=== PATIENT | female | born 1965 ===

== ENCOUNTER 2018-08-25 00:31 | Outpatient (CLI) | payer OTHER, SELFPAY ==
--- NOTE | 2018-08-25 13:20 | DI.MAMMO_ITS ---
SYMPTOMS/DIAGNOSIS: SCREENING, Z12.31 MAMMOGRAM: Mammograms were interpreted according to the usual protocol including computer analysis with CAD system, tomosynthesis and C view imaging. The breast tissue is radiodense which lowers the sensitivity of the study. There is no dominant mass. There are no suspicious calcifications and there has been no significant interval change when compared with prior images. SUMMARY: No evidence of malignancy, Category I, yearly screening mammography is recommended. Breast density Category C. MQSA ASSESSMENT OF FINDINGS: Negative. Category 1. Patient will receive a letter notifying them of these results. Bi-RADS category C. The breasts are heterogeneously dense, which may obscure small masses.
== END 2018-08-25 00:51 ==
PROVIDERS: PCP Family Medicine; Visit Provider Obstetrics & Gynecology Gynecology
DX: Z12.31 Encounter for screening mammogram for malignant neoplasm of breast (principal)
CPT/HCPCS: 77063; 77067

== ENCOUNTER 2018-11-16 10:16 | Outpatient (CLI) | payer OTHER, SELFPAY ==
--- NOTE | 2018-11-16 09:11 | DI.RAD_ITS ---
SYMPTOMS/DIAGNOSIS: ANKLE PAIN LEFT ANKLE: There is an osteochondral defect of the medial talar dome, which is likely old. No joint space loose body is seen. There is mild tibiotalar joint space narrowing and mild spurring at the malleoli. There is also some spurring at the distal tibiofibular joint and posterior talocalcaneal joint. There is a small plantar calcaneal spur. 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 LEFT FOOT: There is a tiny plantar calcaneal spur. There is mild to moderate narrowing of the 1st MTP joint and periarticular spurring. No hallux valgus or bony erosions are seen. An osteochondral defect is noted of the medial talar dome seen on the oblique view. There are no significant intertarsal or tarsometatarsal degenerative changes. IMPRESSION: Mild to moderate degenerative changes of the 1st MTP joint.
== END 2018-11-16 10:36 ==
PROVIDERS: PCP Family Medicine; Visit Provider Student in an Organized Health Care Education/Training Program
DX: M25.572 Pain in left ankle and joints of left foot (principal); M79.672 Pain in left foot; M95.8 Other specified acquired deformities of musculoskeletal system; M19.072 Primary osteoarthritis, left ankle and foot; M77.32 Calcaneal spur, left foot
CPT/HCPCS: 73610; 73630

== ENCOUNTER 2019-08-16 16:40 | Outpatient (REF) | payer OTHER, SELFPAY ==
[2019-08-17 11:56] LABS: HCT 42.3 % (36.0-46.0); HGB 14.2 g/dL (12.0-15.5); Mean Corp. HGB Concentration 33.6 g/dL (32.0-36.0); Mean Corpuscular Hemoglobin 30.4 pg (27.0-33.0); Mean Corpuscular Volume 90.6 fL (80-95); Mean Platelet Volume 11.9 fL (8.0-11.0); Platelet Count 255 x1000/uL (130-400); RBC 4.67 m/cumm (4.00-5.20); RBC Distribution Width 12.3 % (11.7-14.6); White Blood Cell Count 6.24 k/cumm (4.4-10.8)
[2019-08-17 12:15] LABS: TSH (W/Ref FT4) 1.16 uIU/mL (0.36-3.74)
[2019-08-18 12:50] LABS: HIV-1/2 Ag & Ab Screen Negative (Negative); Hepatitis C Ab w Rflx HCV PCR Negative (Negative)
== END 2019-08-16 17:00 ==
LOC: LBN 16:40
PROVIDERS: PCP Family Medicine; Visit Provider Nurse Practitioner Women's Health
DX: R53.83 Other fatigue (principal); Z11.4 Encounter for screening for human immunodeficiency virus [HIV]; Z11.59 Encounter for screening for other viral diseases; Z11.3 Encounter for screening for infections with a predominantly sexual mode of transmission
CPT/HCPCS: 85027; 86803; 87389; 84443

== ENCOUNTER 2020-08-14 15:16 | Outpatient (REF) | payer OTHER, SELFPAY ==
[2020-08-14 16:17] LABS: Anion Gap 8.3 mmol/L (3-11); BUN 14 mg/dL (7-18); CO2 30.7 mmol/L (21.0-32.0); CREATININE 0.7 mg/dL (0.55-1.02); Calcium 9.2 mg/dL (8.5-10.1); Calculated LDL 133 mg/dL (<100); Chloride 106 mmol/L (98-107); Cholesterol 235 mg/dL (<200); Glucose 93 mg/dL (74-106); HDL Cholesterol 74 mg/dL (40-60); Potassium 4.2 mmol/L (3.5-5.1); Sodium 145 mmol/L (136-145); Triglyceride 143 mg/dL (<150)
[2020-08-15 05:01] LABS: Vitamin D 25 Total 23.6 ng/mL (30-100)
== END 2020-08-14 15:17 | disposition home or self-care (01) ==
LOC: NCHCN 15:16
PROVIDERS: PCP Family Medicine; Visit Provider Family Medicine
DX: E55.9 Vitamin D deficiency, unspecified (principal); R25.2 Cramp and spasm; Z00.00 Encounter for general adult medical examination without abnormal findings; Z13.220 Encounter for screening for lipoid disorders
CPT/HCPCS: 80048; 80061; 82306; 83735

== ENCOUNTER 2020-08-28 00:53 | Outpatient (CLI) | payer OTHER, SELFPAY ==
--- NOTE | 2020-08-28 | DI.MAMMO_ITS ---
Exam(s) MAMMO SCREENING EXAM: MAMMO SCREENING CLINICAL HISTORY: SCREENING, Z12.31. TECHNIQUE: Bilateral full field digital CC and MLO mammographic images were obtained with 3D tomosyn thesis and utilizing computer aided detection (CAD). COMPARISON: Prior mammograms dating back to 2015, the most recent being August 2018. FINDINGS: There are no new spiculated masses nor malignant appearing microcalcification groups. Benign microcalcifications are again noted in both breast. There is no significant architectural distortion nor skin thickening-retraction. IMPRESSION: No radiographic evidence of malignancy. BI-RADS Category 1 - Negative Breast Density - Category B - Scattered areas of fibroglandular density Breast density Category C or D implies that the patient has dense breast tissue. Dense breast tissue can make it harder to find cancer on a mammogram. Dense breast tissue is also associated with an incr eased risk of breast cancer. This information about the result of the mammogram report was provided to the patient to raise their awareness. Use this report when you speak with the patient about their risks for breast cancer, which includes their family history. At that time, you may recommend additional screening tests (Ultrasoun d or MRI) as these tests may add significant information. A negative radiographic report should not delay biopsy if a dominant or clinically suspicious mass is present. Up to ten percent of cancers are not identified on mammography. A negative report may reinforce clinical impression. Adenosis and dense breasts may obscure an underlying neoplasm. False positive reports average 6 to 10%. Patient will receive a letter notifying them of these results.
== END 2020-08-28 01:13 ==
PROVIDERS: PCP Family Medicine; Visit Provider Family Medicine
DX: Z12.31 Encounter for screening mammogram for malignant neoplasm of breast (principal); R92.8 Other abnormal and inconclusive findings on diagnostic imaging of breast
CPT/HCPCS: 77063; 77067

== ENCOUNTER 2020-11-08 14:33 | Outpatient (REF) | payer OTHER, SELFPAY ==
[2020-11-08 18:34] LABS: ESR 4 mm/hr (0-30)
[2020-11-08 18:48] LABS: C-Reactive Protein 0.13 mg/dL (0.0-0.3)
[2020-11-11 09:21] LABS: Cyclic Citrullinated Peptide <2.5 U/mL (<5.0)
== END 2020-11-08 14:34 | disposition home or self-care (01) ==
LOC: NCHCN 14:33
PROVIDERS: PCP Family Medicine; Visit Provider Family Medicine
DX: M25.462 Effusion, left knee (principal); R21 Rash and other nonspecific skin eruption
CPT/HCPCS: 85652; 86200; 86140

== ENCOUNTER 2020-11-08 15:54 | Outpatient (CLI) | payer OTHER, SELFPAY ==
--- NOTE | 2020-11-08 | DI.RAD_ITS ---
Exam(s) XR KNEE LT 3V AP,LAT,LAURA EXAM: XR KNEE LT 3V AP,LAT,LAURA CLINICAL HISTORY: LT KNEE JOINT EFFUSION M25.462, STANDING PLEASE TECHNIQUE: COMPARISON: No exams were available for comparison FINDINGS: Three views were obtained. There is an ACL reconstruction with a suture anchor adjacent to the dista l lateral femoral metaphysis. Cartilaginous joint spaces appear fairly well maintained. There may b e a small knee joint effusion seen on the lateral view. Minimal marginal osteophyte formation noted particularly at the patellofemoral joint. IMPRESSION: Mild DJD, prior ACL reconstruction noted. RADIATION DOSE DELIVERED: Total DLP
== END 2020-11-08 16:14 ==
PROVIDERS: PCP Family Medicine; Visit Provider Family Medicine
DX: M25.462 Effusion, left knee (principal); M17.12 Unilateral primary osteoarthritis, left knee
CPT/HCPCS: 73562

== ENCOUNTER 2020-11-27 11:20 | Outpatient (CLI) | payer OTHER, SELFPAY ==
--- NOTE | 2020-11-27 | DI.MRI_ITS ---
Exam(s) MR LOWER JOINT LT WO EXAM: MR LOWER JOINT LT WO CLINICAL HISTORY: LT KNEE JT EFFUSION, M25.462, LT KNEE PAIN SWELLING. TECHNIQUE: Multiplanar multisequence MRI was performed. COMPARISON: CR XR KNEE LT 1V from 11/27/2020 CR XR KNEE LT 1V from 11/27/2020 FINDINGS: BONES: There is no fracture or contusion pattern. Mild subchondral edema in the medial tibial plateau . JOINTS: Articular cartilage is unremarkable. There is a small to moderate joint effusion. There is a thickened lateral plica. TENDONS: Extensor mechanism: Unremarkable. Medial retinaculum: Unremarkable. Lateral retinaculum: Unremarkable. Popliteus: Unremarkable. MUSCLES: Mild edema in the gastrocnemius muscles. MENISCI: The medial meniscus is unremarkable. The lateral meniscus is unremarkable. SOFT TISSUES: There is edema seen in the soft tissues around the knee. There does appear to be a sma ll popliteal cyst. LIGAMENTS: Anterior Cruciate: There is an intact ACL repair. Posterior Cruciate: Unremarkable. Medial Collateral:There is a sprain of the MCL. Lateral Collateral: Unremarkable. OTHER: IMPRESSION: 1. Intact ACL graft. 2. No evidence of a meniscal tear. 3. MCL sprain. 4. Joint effusion. DATA REPOSITORY:
--- NOTE | 2020-11-27 16:52 | DI.VRAD_ITS ---
PROCEDURE INFORMATION: Exam: MR Left Lower Extremity Joint Without Contrast, Knee Exam date and time: 11/27/2020 4:18 PM Age: 55 years old Clinical indication: Pain; Knee; Left; Prior surgery; Surgery date: 6+ months; Surgery type: Acl recon 2005 TECHNIQUE: Imaging protocol: MR of the Left lower extremity joint without contrast. Exam focused on the knee. COMPARISON: CR XR KNEE LT 1V 11/27/2020 3:19 PM FINDINGS: Bones and cartilage: Focal reactive subchondral edema posterior aspect of the medial tibial plateau. Joint spaces: Moderate joint effusion. Mild synovitis. Medial meniscus: Unremarkable. No tear. Lateral meniscus: Unremarkable. No tear. Anterior cruciate ligament: Postoperative changes of ACL reconstruction. The graft appears intact and in good position. Posterior cruciate ligament: Unremarkable. No tear. Medial capsule and supporting structures: Distal semimembranosus enthesopathy. Edema along the deep and superficial fibers of the medial collateral ligament with mild thickening of the MCL, consistent with low-grade MCL tearing. Lateral capsule and supporting structures: Unremarkable. No tear. Extensor mechanism of knee: Unremarkable. No tear. Muscles: Muscular edema in the gastrocnemius muscles and in the muscles of the anterior compartment of the leg. Soft tissues: Diffuse subcutaneous edema. Edema in the popliteal fossa. IMPRESSION: 1. ACL graft appears intact and in good position 2. Moderate joint effusion with mild synovitis 3. Low-grade MCL tear 4. Other incidental findings as described Dictated and Authenticated by: Shelly Kruse MD. Ordering:NATALIE Del Cid MD
== END 2020-11-27 11:40 ==
PROVIDERS: PCP Family Medicine; Visit Provider Family Medicine
DX: M25.462 Effusion, left knee (principal); S83.412A Sprain of medial collateral ligament of left knee, initial encounter
CPT/HCPCS: 73721

== ENCOUNTER 2020-11-27 14:56 | Outpatient (CLI) | payer OTHER, SELFPAY ==
--- NOTE | 2020-11-27 14:45 | DI.RAD_ITS ---
Exam(s) XR KNEE LT 1V EXAM: XR KNEE LT 1V CLINICAL HISTORY: left knee pain. TECHNIQUE: 2D digital imaging was performed. A single sunrise view was obtained. COMPARISON: CR XR KNEE LT 3V AP,LAT,LAURA from 11/08/2020 FINDINGS: There is normal alignment of the patella. No fracture is appreciated. The soft tissues are unremark able. IMPRESSION: No gross abnormality on this limited examination. DATA REPOSITORY: RADIATION DOSE DELIVERED:
== END 2020-11-27 14:57 | disposition home or self-care (01) ==
LOC: DIORS 14:57
PROVIDERS: PCP Family Medicine; Referring Provider Family Medicine; Visit Provider Student in an Organized Health Care Education/Training Program
DX: M25.562 Pain in left knee (principal)
CPT/HCPCS: 73560

== ENCOUNTER 2020-11-29 15:13 | Outpatient (CLI) | payer OTHER, SELFPAY ==
[2020-11-29 14:56] LABS: Abs Immature Grans 0.02 10^3/uL (0.0-0.06); Absolute Basophil Count 0.02 10^3/uL (0.0-0.2); Absolute Eosinophil Count 0.24 10^3/uL (0.0-0.7); Absolute Lymphocyte Count 2.09 10^3/uL (1.2-3.4); Absolute Monocyte Count 0.47 10^3/uL (0.1-0.8); Basophils % 0.2; Eosinophils % 2.8; HCT 39.9 % (36.0-46.0); HGB 13.1 g/dL (11.2-15.7); Immature Grans % 0.2; Lymphocytes % 24.8; MCH 29.8 pg (27.0-33.0); MCHC 32.8 % (32.0-36.0); MCV 90.9 fL (80-95); MPV 9.8 fL (8.0-11.0); Monocytes % 5.6; Neutrophils % 66.4; Nucleated RBC 0 %; Platelet Count 299 10^3/uL (130-400); RBC 4.39 10^6/uL (3.93-5.22); RDW 11.8 % (11.7-14.6); RDW-SD 39.3 fL; WBC 8.44 10^3/uL (4.4-10.8)
[2020-11-29 14:58] LABS: ESR 6 mm/hr (0-30)
[2020-11-29 15:49] LABS: C-Reactive Protein 0.22 mg/dL (0.0-0.3)
[2020-11-29 21:56] LABS: Rheumatoid Factor 54.2 IU/mL (<12.0)
[2020-12-02 11:12] LABS: Lyme Ab w Rflx to Lyme Confirm Negative (Negative)
[2020-12-02 15:16] LABS: ANA Interpretation Positive (Negative); ANA Titer Pattern 1:80 Speckled
[2020-12-02 16:57] LABS: Anaplasma phagocytophilum Negative (Negative); B. miyamotoi PCR Negative (Negative); Babesia divergens/MO-1 Negative (Negative); Babesia duncani Negative (Negative); Babesia microti Negative (Negative); Ehrlichia chaffeensis Negative (Negative); Ehrlichia ewingii/canis Negative (Negative); Ehrlichia muris eauclairensis Negative (Negative)
== END 2020-11-29 15:14 | disposition home or self-care (01) ==
LOC: LBO 15:16
PROVIDERS: PCP Family Medicine; Visit Provider Student in an Organized Health Care Education/Training Program
DX: M25.462 Effusion, left knee (principal)
CPT/HCPCS: 36415; 85652; 87798; 85025; 86038; 86140; 86431; 86618

== ENCOUNTER 2020-12-03 14:54 | Outpatient (REF) | payer OTHER, SELFPAY ==
[2020-12-03 15:13] LABS: Crystals (BF) No Crystals seen
[2020-12-03 15:23] LABS: Clarity Cloudy
[2020-12-03 15:24] LABS: Nucleated Cells 7900 uL (0)
[2020-12-03 15:27] LABS: Mononuclear Cells 77 %; Polynuclear Cells 23 %
== END 2020-12-03 14:55 | disposition home or self-care (01) ==
LOC: LBN 14:54
PROVIDERS: PCP Family Medicine; Visit Provider Student in an Organized Health Care Education/Training Program
DX: M25.462 Effusion, left knee (principal)
CPT/HCPCS: 87070; 87075; 87205; 89051; 89060

== ENCOUNTER 2020-12-19 03:18 | Outpatient (CLI) | payer OTHER, SELFPAY ==
[2020-12-19 10:02] LABS: ESR 20 mm/hr (0-30)
[2020-12-19 11:05] LABS: C-Reactive Protein 1.32 mg/dL (0.0-0.3)
[2020-12-20 10:41] LABS: Lyme Ab w Rflx to Lyme Confirm Negative (Negative)
[2020-12-22 13:22] LABS: Anaplasma phagocytophilum Negative (Negative); B. miyamotoi PCR Negative (Negative); Babesia divergens/MO-1 Negative (Negative); Babesia duncani Negative (Negative); Babesia microti Negative (Negative); Ehrlichia chaffeensis Negative (Negative); Ehrlichia ewingii/canis Negative (Negative); Ehrlichia muris eauclairensis Negative (Negative)
== END 2020-12-19 03:19 | disposition home or self-care (01) ==
PROVIDERS: PCP Family Medicine; Visit Provider Student in an Organized Health Care Education/Training Program
DX: M25.462 Effusion, left knee (principal)
CPT/HCPCS: 36415; 85652; 87798; 86140; 86618

== ENCOUNTER 2021-03-25 02:00 | Outpatient (CLI) | payer OTHER, SELFPAY ==
[2021-03-25 10:46] LABS: Kit/Specimen SENT
== END 2021-03-25 02:01 | disposition home or self-care (01) ==
LOC: LBO 02:01
PROVIDERS: PCP Family Medicine; Visit Provider Naturopath
DX: N95.1 Menopausal and female climacteric states (principal)
CPT/HCPCS: 36415

== ENCOUNTER 2021-07-15 13:05 | Outpatient (REF) | payer OTHER, SELFPAY ==
--- NOTE | 2021-07-15 11:30 | PAPFT_PTH ---
PATIENT: Heather Min LOC: [facility] U#:[id number] AGE/SX: 56/F ROOM: RE07/15/[address]: Shara Traore NP : 1965 BED: DIS: 07/15/2021 SPEC #: [id number] RECD: 07/15/21 16:27 STATUS: EKATERINA HORVATH #: [id number] MARKY: 07/15/21 11:[address]: Shara Traore NP DEPT: [facility] Cytology RECD BY: Wilbur Araya Tissues: 1 - CX/ENDOCX FOR PAP SMEARS Procedures: PAP THIN PREP/UVM Screening HPV DNA PROBE Comments: [id number]
== END 2021-07-15 13:06 | disposition home or self-care (01) ==
LOC: LBN 13:05
PROVIDERS: PCP Family Medicine; Visit Provider Nurse Practitioner Women's Health
DX: Z12.4 Encounter for screening for malignant neoplasm of cervix (principal); Z11.51 Encounter for screening for human papillomavirus (HPV)
CPT/HCPCS: 88142; 87624

== ENCOUNTER 2022-05-25 01:53 | Outpatient (CLI) | payer OTHER, SELFPAY ==
--- NOTE | 2022-05-25 | DI.MAMMO_ITS ---
Exam(s) MAMMO SCREENING EXAM: MAMMO SCREENING CLINICAL HISTORY: SCREENING, Z12.31 TECHNIQUE: Bilateral full field digital CC and MLO mammographic images were obtained with 3D tomosyn thesis and utilizing computer aided detection (CAD). COMPARISON: Available for comparison. FINDINGS: Masses/Architectural Distortion: None seen. Microcalcifications: No suspicious pleomorphic-type are seen. Skin Thickening/Nipple Retraction: None. IMPRESSION: 1. No significant interval change with no specific features of malignancy noted. 2. Unless there is more urgent need, screening mammography is recommended, as per [employer] guidelines. BI-RADS Category 1 - Negative Breast Density - Category B - Scattered areas of fibroglandular density Breast density category C or D implies that the patient has dense breast tissue. Dense breast tissue is very common and is not abnormal but dense breast tissue can make it harder to find cancer on a ma mmogram. Also, dense breast tissue may increase their breast cancer risk. This information about the result of the mammogram report was provided to the patient to raise their awareness. Use this report when you speak with the patient about their risks for breast cancer, which includes their family hist ory. At that time, you may recommend for more screening tests (Ultrasound or MRI) as they might be us eful based on their risk. A negative radiographic report should not delay biopsy if a dominant or clinically suspicious mass is present. Up to ten percent of cancers are not identified on mammography. A negative report may reinforce clinical impression. Adenosis and dense breasts may obscure an underlying neoplasm. False positive reports average 6 to 10%. Patient will receive a letter notifying them of these results.
== END 2022-05-25 02:13 ==
LOC: DI 01:54
PROVIDERS: PCP Family Medicine; Visit Provider Family Medicine
DX: Z12.31 Encounter for screening mammogram for malignant neoplasm of breast (principal)
CPT/HCPCS: 77063; 77067

== ENCOUNTER 2022-06-24 12:40 | Outpatient (CLI) | payer OTHER, SELFPAY ==
[2022-06-24 12:44] LABS: Vitamin D 25 Total 25.9 ng/mL (30-100)
== END 2022-06-24 12:41 | disposition home or self-care (01) ==
LOC: LBO 12:40
PROVIDERS: PCP Family Medicine; Visit Provider Family Medicine
DX: E55.9 Vitamin D deficiency, unspecified (principal)
CPT/HCPCS: 36415; 82306

== ENCOUNTER 2022-08-03 08:26 | Day surgery (SDC) | payer OTHER, SELFPAY ==
[2022-08-03 08:30] VITALS: BP 118/83; PULSE 115; RESP 18; TEMP 36.5; O2SAT 100
--- NOTE | 2022-08-03 08:41 | COLE_ITS ---
Date of service: 08/03/22 Time of Service: 09:30 Colonoscopy Report Procedure Description: Procedures performed: 1. Colonoscopy with cold forceps polypectomy x2 Preoperative diagnosis: Screening colonoscopy Postoperative diagnosis: Normal Colon, hyperplastic rectal polyps Surgeon: Chico Ewing Anesthesia: Aubrey Indication for procedure: 57-year-old woman without any symptoms, no prior colonoscopy, no family history of colon cancer, due for screening. Findings: Normal terminal ileum.? Normal Colon.? 2 hyperplastic polyps seen and removed with cold forceps technique to confirm benign character. Surveillance/follow-up recommendations: 10 years Complications: None Blood loss: Minimal Prep: Excellent Specimens:? None Procedure in detail: Written consent was obtained from the patient who was in agreement with the risks, benefits and indications of the procedure.? We went to the endoscopy suite and laid the patient in left lateral decubitus position.? Anesthesia was administered which was tolerated well.? A timeout was performed and when we are all in agreement we began the procedure. Digital rectal exam and visual examination was performed and within normal limits.? A well?lubricated colonoscope was advanced without difficulty all the way to the cecum identified by the ileocecal valve, and triangular folds and appendiceal orifice.? Terminal ileum was normal.? It was then slowly withdrawn.?? Retroflexion was performed in the rectum.? The findings/i nterventions are noted above. The scope was then removed and the patient tolerated the procedure well and was then taken back to the PACU in hemodynamically stable condition.
[2022-08-03] MEDS: Lactated Ringers 1,000 ML 80 ML IV (09:26)
--- NOTE | 2022-08-03 09:57 | W.ANESPRE ---
General Info Date of Service Date Performed: 08/03/22 Height: 5 ft 7 in Weight: 54.7 kg Body Mass Index (BMI): 18.8 Surgical Procedure: Operation Date: 08/03/22 09:50 Proposed Procedure Side Surgeon p Colonoscopy Darshan Ewing MD Actual Procedure Side Surgeon p Colonoscopy Not Applicable Darshan Ewing MD Meds Allergies and Home Medications Allergies Allergy/AdvReac Type Severity Reaction Status Date / Time montelukast [From Singulair] Allergy Intermediate paresthesia Verified 08/03/22 08:58 ENVIRONMENTAL Allergy Intermediate CHRONIC Uncoded 08/03/22 08:58 RHINITIS HIGH DOSE VITAMIN D AdvReac Intermediate URINARY Uncoded 08/03/22 08:58 SYMPTOMS, FLANK PAIN Home Medication Medication Instructions Recorded cholecalciferol (vitamin D3) 25 2,000 unit PO DAILY 07/23/22 mcg (1,000 unit) tablet magnesium 200 mg tablet 400 mg PO DAILY 07/23/22 tumeric 100 mg-tyron 150 mg-olive cap PO DAILY 07/23/22 50 mg-oreg 150 mg-caprylate capsule Current Visit Medications: Current Medications Generic Name Dose Route Start Last Admin Trade Name Freq PRN Reason Stop Dose Admin Ringer's Solution 1,000 mls @ 80 mls/hr 08/03/22 06:00 08/03/22 09:26 IV 08/30/22 23:59 80 mls/hr INFUSION LADAN Administration IV Miscellaneous Supplies 1 each 08/03/22 06:00 Iv Access IV 08/30/22 23:59 DIRECTED LADAN Sodium Chloride 0 ml 08/03/22 06:00 Normal Saline Flush 10 Ml Syr IV 08/30/22 23:59 PRN PRN Sodium Chloride 0 ml 08/03/22 06:00 Normal Saline 10 Ml Vial IJ 08/30/22 23:59 DIRECTED PRN Sterile Water 0 ml 08/03/22 06:00 Water,Injection,Sterile 10 Ml Vial IJ 08/30/22 23:59 DIRECTED PRN PFSH Active Problems Active Problems: Problem Status Onset Code PSVT (paroxysmal supraventricular tachycardia) I47.1 Vitamin D deficiency E55.9 Chest pain, atypical R07.89 Low back pain M54.50 Skin lesion of scalp L98.9 Screening for colon cancer Z12.11 Tingling of both upper extremities R20.2 Bilateral wrist pain M25.531, M25.532 Lyme disease A69.20 Synovitis of left knee M65.9 S/P ACL reconstruction ~12/2005 Z98.890 Effusion, left knee ~10/2020 M25.462 Encounter for screening for other viral diseases Z11.59 Posterior tibial tendon dysfunction, left M76.822 Vaginal dryness, menopausal 2018 N95.1 Vaginal wall prolapse 02/22/13 N81.10 Sensorineural hearing loss, bilateral 08/03/13 H90.3 Nasal polyp 02/15/14 J33.9 Mixed incontinence 02/22/13 N39.46 Menopausal disorder 06/20/12 N95.9 Cervicalgia 02/15/14 M54.2 Cephalgia 02/15/14 R51 Medical History Medical History Allergic rhinitis Left ankle pain Leg cramps Malignant melanoma On back 02/2015. No additional Rx. Neck pain on right side Urinary incontinence, mixed Pelvic floor physical therapy in the past. Surgical History Surgical History Repair, ACL L knee Sinus polypectomy Tobacco Smoking/Tobacco Use Status: Never Alcohol Alcohol Intake: current Alcohol intake frequency: holidays/special occasions only Details: WINE 4-6 DAYS /WK Substance Use Substance use type: does not use Prental History History 3 Para Hx # Term Pregnancies 2 Multiple births Hx # Pregnancies Ectopic pregnancies AB induced Hx Number of Living Children AB spontaneous Vital Signs and Lab Results Vital Signs Most Recent Vital Signs in EMR: Most Recent Vital Signs Temp Pulse Resp BP Pulse Ox 36.5 C 115 H 18 118/83 100 08/03/22 08:30 08/03/22 08:30 08/03/22 08:30 08/03/22 08:30 08/03/22 08:30 Lab Results Blood Type / Crossmatch: No Data to Display Complete Blood Count: No Data to Display Complete Metabolic Panel: No Data to Display Liver Function Panel: No Data to Display Coagulation Panel: No Data to Display Cardiac Panel: No Data to Display Arterial Blood Gas: No Data to Display Venous Blood Gas: No Data to Display Pancreas Panel: No Data to Display Thyroid Panel: No Data to Display Infectious Disease: No Data to Display Blood Cultures: No Data to Display Toxicology Panel: No Data to Display Anesthesia Assessment and Plan Anesthesia History Personal History: No History of Anesthesia Complications Family History: No Family History of Anesthesia Complications Exercise Tolerance Exercise Tolerance: Metabolic Equivalents>4 Pertinent Negatives Pertinent Negatives: No Symptoms of GERD Cardiac & Pulmonary Exam Cardiac Exam: Normal S1/S2 Heart Sounds Pulmonary Exam: Clear Bilateral Breath Sounds Implantable Cardiac Device Does patient have a Pacemaker or an ICD?: No Airway Exam Known Difficult Airway: No Mallampati Class: 1 Mouth Opening: Normal (> 3cm) Thyromental Distance: Greater than 3 cm Neck Range of Motion: Full ROM Neck Circumference: Normal Teeth Condition: Normal Dentition ASA Classification ASA Score: ASA 2 Emergency Case?: No NPO Status NPO Status: NPO Clears >2 hours, Solids >8 hours Anesthesia Plan Resuscitation Status: Full Code Anesthesia Technique: MAC Anesthesia Airway Planned: Natural Airway Monitors Used: Standard Monitors Preoperative Comments:: pt requesting no anesthesia with Propofol rescue.
[2022-08-03 09:58] VITALS: BMI 18.8
--- NOTE | 2022-08-03 10:35 | BOWEL_PTH ---
PATIENT: Heather Min LOC: [facility] U#:[id number] AGE/SX: 57/F ROOM: RE08/03/[address]: Darshan Ewing : 1965 BED: DIS: 08/03/2022 SPEC #: [id number] RECD: 08/03/22 12:55 STATUS: EKATERINA RE #: [id number] MARKY: 08/03/22 10:[address]: Darshan Ewing DEPT: Surgical Specimen RECD BY: Meeankshi Mccallum ENTERED: 08/03/22 12:56 SP TYPE: Bowel OTHR DR: Maria Eugenia Story Tissues: 1 - BIOPSY BOWEL Procedures: GROSS AND MICRO LEVEL 4 Comments: [id number]
[2022-08-03 10:40] VITALS: BP 108/77; PULSE 74; RESP 16; TEMP 35.8; O2SAT 99
--- NOTE | 2022-08-03 10:47 | W.ANESPOSTOP ---
Postoperative Evaluation Date, Time and Location Date Performed: 08/03/22 Time Performed: 10:48 Patient Location: Day Surgery Unit Vital Signs Most Recent Imported Vital Signs: Most Recent Vital Signs Temp Pulse Resp BP Pulse Ox 36.5 C 115 H 18 118/83 100 08/03/22 08:30 08/03/22 08:30 08/03/22 08:30 08/03/22 08:30 08/03/22 08:30 Assessment Mental Status: Awake (Alert & Oriented to Patient Baseline) Airway and Respiratory Function: Patent airway with normal (patient baseline) respiratory exam Cardiovascular Function: Hemodynamically Stable Hydration Status: Adequately Hydrated Nausea & Vomiting: No Nausea or Vomiting Pain: Pt. Denies Any Pain Peripheral Nerve Block: Patient did not receive a nerve block
[2022-08-03 10:59] VITALS: BP 108/70; PULSE 61; RESP 16; TEMP 36.6; O2SAT 99
== END 2022-08-03 11:08 | disposition home or self-care (01) ==
PROVIDERS: PCP Family Medicine; Visit Provider Student in an Organized Health Care Education/Training Program
PROC: 0DJD8ZZ Inspection of Lower Intestinal Tract, Via Natural or Artificial Opening Endoscopic (ICD-10-PCS; CPT 45378; principal; 2022-08-03 09:45)
DX: Z12.11 Encounter for screening for malignant neoplasm of colon (principal); K63.5 Polyp of colon
CPT/HCPCS: 45380; 88305

== ENCOUNTER 2022-08-26 12:46 | Outpatient (REF) | payer OTHER, SELFPAY ==
[2022-08-26 17:05] LABS: Abs Immature Grans 0.01 10^3/uL (0.0-0.06); Absolute Basophil Count 0.01 10^3/uL (0.0-0.2); Absolute Lymphocyte Count 0.48 10^3/uL (1.2-3.4); Absolute Monocyte Count 0.25 10^3/uL (0.1-0.8); Absolute Neutrophil Count 2.96 10^3/uL (1.2-6.7); Basophils % 0.3; HCT 43.5 % (36.0-46.0); HGB 14.5 g/dL (11.2-15.7); Immature Grans % 0.3; Lymphocytes % 12.9; MCH 30.1 pg (27.0-33.0); MCHC 33.3 % (32.0-36.0); MCV 90 fL (80-95); MPV 11.1 fL (8.0-11.0); Monocytes % 6.7; Neutrophils % 79.8; Platelet Count 191 10^3/uL (130-400); RBC 4.81 10^6/uL (3.93-5.22); RDW 12.9 % (11.7-14.6); RDW-SD 42.9 fL; WBC 3.71 10^3/uL (4.4-10.8)
[2022-08-26 17:28] LABS: ALT 23 U/L (14-59); AST 21 U/L (15-37); Albumin 4.1 g/dL (3.4-5.0); Alkaline Phosphatase 80 U/L (46-116); Anion Gap 7.8 mmol/L (3-11); BUN 10 mg/dL (7-18); Bilirubin, Total 0.4 mg/dL (0.2-1.0); CO2 29.2 mmol/L (21.0-32.0); CREATININE 0.9 mg/dL (0.55-1.02); Calcium 8.9 mg/dL (8.5-10.1); Chloride 101 mmol/L (98-107); Estimated GFR 73.64 (mL/min/1.73m2); Glucose 124 mg/dL (74-106); Potassium 4.7 mmol/L (3.5-5.1); Sodium 138 mmol/L (136-145); Total Protein 7.7 g/dL (6.4-8.2)
[2022-08-28 10:48] LABS: Lyme Ab w Rflx to Lyme Confirm Negative (Negative)
[2022-08-30 20:06] LABS: B. miyamotoi PCR Negative (Negative); Babesia divergens/MO-1 Negative (Negative); Babesia duncani Negative (Negative); Babesia microti Negative (Negative); Ehrlichia chaffeensis Negative (Negative); Ehrlichia ewingii/canis Negative (Negative); Ehrlichia muris eauclairensis Negative (Negative)
[2022-08-30 21:05] LABS: Anaplasma phagocytophilum Positive (Negative)
== END 2022-08-26 12:47 | disposition home or self-care (01) ==
LOC: NCHCN 12:46
PROVIDERS: PCP Family Medicine; Visit Provider Physician Assistant
DX: R50.9 Fever, unspecified (principal)
CPT/HCPCS: 80053; 87798; 85025; 86618

== ENCOUNTER → 2023-10-13 00:59 | Outpatient (CLI) | payer OTHER, SELFPAY ==
--- NOTE | 2023-10-13 | DI.MAMMO_ITS ---
Exam(s) MAMMO SCREENING EXAM: MAMMO SCREENING CLINICAL HISTORY: SCREENING MAMMO Z12.31 TECHNIQUE: Mammograms were interpreted according to the usual protocol including computer analysis w ith CAD system, tomosynthesis and C-view imaging. COMPARISON: No exams were available for comparison FINDINGS: The breasts are composed of scattered fibroglandular densities, Breast Density category B. No suspicious masses or suspicious microcalcifications are seen. Skin calcifications are again noted. No skin thickening or abnormal axillary lymph nodes are seen. There has been no significant change from prior exams. IMPRESSION: BI-RADS Category 2 - Benign Findings Yearly screening mammography is recommended. Breast Density - Category B, scattered fibroglandular densities. A negative radiographic report should not delay biopsy if a dominant or clinically suspicious mass is present. Up to ten percent of cancers are not identified on mammography. A negative report may reinforce clinical impression. Adenosis and dense breasts may obscure an underlying neoplasm. False positive reports average 6 to 10%. Patient will receive a letter notifying them of these results.
== END ==
PROVIDERS: PCP Family Medicine; Visit Provider Family Medicine
DX: Z12.31 Encounter for screening mammogram for malignant neoplasm of breast (principal)
CPT/HCPCS: 77063; 77067

== ENCOUNTER 2023-10-19 08:22 | Outpatient (CLI) | payer OTHER, SELFPAY ==
[2023-10-19 08:02] LABS: HCT 43.2 % (36.0-46.0); HGB 14.3 g/dL (11.2-15.7); MCH 30.3 pg (27.0-33.0); MCHC 33.1 % (32.0-36.0); MCV 92 fL (80-95); MPV 10.6 fL (8.0-11.0); Platelet Count 250 10^3/uL (130-400); RBC 4.72 10^6/uL (3.93-5.22); RDW 12.4 % (11.7-14.6); RDW-SD 41.5 fL; WBC 6.19 10^3/uL (4.4-10.8)
[2023-10-19 08:46] LABS: ALT 22 U/L (14-59); AST 14 U/L (15-37); Alkaline Phosphatase 85 U/L (46-116); Anion Gap 6.1 mmol/L (3-11); BUN 15 mg/dL (7-18); Bilirubin, Total 0.61 mg/dL (0.2-1.0); CO2 30.9 mmol/L (21.0-32.0); CREATININE 0.8 mg/dL (0.55-1.02); Calculated LDL 120 mg/dL (<100); Chloride 106 mmol/L (98-107); Cholesterol 210 mg/dL (<200); Glucose 101 mg/dL (74-106); HDL Cholesterol 84 mg/dL (40-60); Magnesium 2.2 mg/dL (1.8-2.4); Potassium 4.6 mmol/L (3.5-5.1); Sodium 143 mmol/L (136-145); TSH (W/Ref FT4) 1.85 uIU/mL (0.36-3.74); Total Protein 7.6 g/dL (6.4-8.2); Triglyceride 34 mg/dL (<150); Vitamin D 25 Total 30.3 ng/mL (30-100)
== END 2023-10-19 08:23 | disposition home or self-care (01) ==
LOC: LBO 08:42
PROVIDERS: PCP Family Medicine; Visit Provider Family Medicine
DX: R53.83 Other fatigue (principal); R10.11 Right upper quadrant pain; E55.9 Vitamin D deficiency, unspecified; Z13.220 Encounter for screening for lipoid disorders; N95.1 Menopausal and female climacteric states
CPT/HCPCS: 36415; 80053; 80061; 82306; 85027; 83735; 84443

== ENCOUNTER 2023-11-24 02:08 | Outpatient (CLI) | payer OTHER, SELFPAY ==
--- NOTE | 2023-11-24 | DI.RAD_ITS ---
Exam(s) XR CHEST 2V PA LATERAL EXAM: XR CHEST 2V PA LATERAL CLINICAL HISTORY: ATYPICAL CHEST PAIN, R07.89 TECHNIQUE: 2D digital imaging was performed. Two views. COMPARISON: CR CHEST 2 VIEWS PA,LAT from 12/27/2016 FINDINGS: HEART: Normal size. Aorta: Not dilated. PULMONARY VASCULATURE: Normal. MEDIASTINUM: Unremarkable. LUNGS: Clear. PLEURAL SPACE: No pleural effusion or pneumothorax. BONE:Unremarkable for age. SOFT TISSUES: Unremarkable. IMPRESSION: No acute abnormality. DATA REPOSITORY: RADIATION DOSE DELIVERED:
== END 2023-11-24 02:28 ==
LOC: DI 02:08
PROVIDERS: PCP Family Medicine; Visit Provider Family Medicine
DX: M79.672 Pain in left foot (principal); R07.89 Other chest pain
CPT/HCPCS: 71046

== ENCOUNTER 2023-11-24 02:09 | Outpatient (CLI) | payer OTHER, SELFPAY ==
--- NOTE | 2023-11-24 07:30 | DI.RAD_ITS ---
Exam(s) XR FOOT LT COMPLETE EXAM: XR FOOT LT COMPLETE CLINICAL HISTORY: Left foot pain,M79.672. TECHNIQUE: 2D digital imaging was performed. Three views. COMPARISON: CR XR foot LT complete from 11/16/2018 FINDINGS: BONES: No acute fracture is present. No bony destructive lesion is seen. Small heel spurs. JOINTS: No dislocation present. Plantar arch is maintained. Minimal degenerative changes at 1st MT P joint. SOFT TISSUE: Normal. IMPRESSION: Small heel spurs. Mild degenerative changes. DATA REPOSITORY: RADIATION DOSE DELIVERED:
== END 2023-11-24 02:29 ==
LOC: DI 02:09
PROVIDERS: PCP Family Medicine; Visit Provider Podiatrist
DX: M79.672 Pain in left foot (principal)
CPT/HCPCS: 73630

== ENCOUNTER 2024-01-05 02:08 | Outpatient (CLI) | payer OTHER, SELFPAY ==
--- NOTE | 2024-01-05 | DI.RAD_ITS ---
Exam(s) XR SHOULDER RT COMPLETE 2+V EXAM: XR SHOULDER RT COMPLETE 2+V CLINICAL HISTORY: Pain in rt shoulder, M25.511, persistent pain on anterolateral shoulder,. TECHNIQUE: 2D digital imaging was performed of the right shoulder. Five images were obtained. AP, Grashey, Y-view and axillary views were obtained. COMPARISON: No exams were available for comparison FINDINGS: BONES: No acute fracture is present. No bony destructive lesion is seen. JOINTS: No dislocation present. The glenohumeral and acromioclavicular joints are well maintained. SOFT TISSUE: There is soft tissue calcifications adjacent to the head suggesting calcific tendinitis. IMPRESSION: Findings suggestive of calcific tendinitis. DATA REPOSITORY: RADIATION DOSE DELIVERED:
== END 2024-01-05 02:28 ==
LOC: DI 02:09
PROVIDERS: PCP Family Medicine; Visit Provider Student in an Organized Health Care Education/Training Program
DX: M25.511 Pain in right shoulder (principal)
CPT/HCPCS: 73030

== ENCOUNTER 2024-05-09 11:43 | Outpatient (REF) | payer OTHER, SELFPAY ==
--- NOTE | 2024-05-09 11:30 | PAPFT_PTH ---
PATIENT: Heather Min LOC: [facility] U#:[id number] AGE/SX: 58/F ROOM: RE05/09/[address]: Marie Sweeney : 1965 BED: DIS: 05/09/2024 SPEC #: [id number] RECD: 05/09/24 12:58 STATUS: CATECara RERanjan #: [id number] MARKY: 05/09/24 11:[address]: Marie Sweeney DEPT: [facility] Cytology RECD BY: Meenakshi Mccallum ENTERED: 05/09/24 12:59 SP TYPE: PAPFT OTHR DR: Maria Eugenia Story Tissues: 1 - CX/ENDOCX FOR PAP SMEARS Procedures: PAP THIN PREP/[facility] Screening HPV DNA PROBE Comments: [id number] (HPV 16 & 18/45)
== END 2024-05-09 11:44 | disposition home or self-care (01) ==
LOC: LBN 11:43
PROVIDERS: PCP Family Medicine; Visit Provider Obstetrics & Gynecology Gynecology
DX: N95.0 Postmenopausal bleeding (principal); N95.1 Menopausal and female climacteric states; N95.9 Unspecified menopausal and perimenopausal disorder; N39.46 Mixed incontinence
CPT/HCPCS: 88142; 87624